=== PATIENT | female | born 1995 | race Caucasian/White ===

== ENCOUNTER 2018-08-06 15:00 | Emergency (ER) | payer OTHER ==
[~2018-08-06] VITALS: Ht 152.4 cm; Wt 52.8 kg
[2018-08-06 15:07] VITALS: Ht 152.4 cm; Wt 52.8 kg
--- NOTE | 2018-08-06 15:51 | ERD ---
ER Documentation Chief Complaint Chief Complaint epigastric pain, vomitting, tingling in fingers & toes after vomitting HPI 23-year-old female, previously healthy, presents the emergency department, complaining of epigastric abdominal pain that started approximately 2 hours ago, associated with nausea and 2 episodes of vomiting. The patient denies history of previous similar episodes, no fever, no chills, no diarrhea or constipation. No reports of suspicious food, no history of recent traveling, no history of abdominal surgeries. ROS All systems reviewed and are negative except as per history of present illness. Allergies Allergies: Coded Allergies: No Known Allergy (Unverified , 08/06/18) FmHx Family History: other (HTN, cancer) Physical Exam Vitals Vital Signs Date Temp Pulse Resp B/P (MAP) Pulse Ox O2 O2 Flow FiO2 Time Delivery Rate 08/06/18 99.1 103 18 127/91 98 15:07 (103) Physical Exam Const: No acute distress Head: Atraumatic Eyes: Normal Conjunctiva ENT: Normal External Ears, Nose and Mouth. Neck: Full range of motion. No meningismus. Resp: Clear to auscultation bilaterally Cardio: Regular rate and rhythm, no murmurs Abd: Soft, mild tenderness to deep palpation, no peritoneal signs, normal bowel sounds Skin: No petechiae or rashes Back: No midline or flank tenderness Ext: No cyanosis, or edema Neur: Awake and alert Psych: Normal Mood and Affect Result Diagram: 08/06/18 1625 08/06/18 1625 Results 24 hrs Laboratory Tests Test 08/06/18 16:25 White Blood Count 17.8 10^3/ul Red Blood Count 5.18 10^6/ul Hemoglobin 14.7 g/dl Hematocrit 45.3 % Mean Corpuscular Volume 87.5 fl Mean Corpuscular Hemoglobin 28.4 pg Mean Corpuscular Hemoglobin Concent 32.5 g/dl Red Cell Distribution Width 12.3 % Platelet Count 337 10^3/UL Mean Platelet Volume 10.1 fl Immature Granulocytes % 0.400 % Neutrophils % 85.6 % Lymphocytes % 8.4 % Monocytes % 5.1 % Eosinophils % 0.2 % Basophils % 0.3 % Nucleated Red Blood Cells % 0.0 /100WBC Immature Granulocytes # 0.080 10^3/ul Neutrophils # 15.3 10^3/ul Lymphocytes # 1.5 10^3/ul Monocytes # 0.9 10^3/ul Eosinophils # 0.0 10^3/ul Basophils # 0.1 10^3/ul Nucleated Red Blood Cells # 0.0 10^3/ul Urine Color YELLOW Urine Clarity CLOUDY Urine pH 7.0 Urine Specific [place] 1.030 Urine Ketones 2+ mg/dL Urine Nitrite NEGATIVE mg/dL Urine Bilirubin NEGATIVE mg/dL Urine Urobilinogen NEGATIVE mg/dL Urine Leukocyte Esterase NEGATIVE Adam/ul Urine Microscopic RBC 6 /HPF Urine Microscopic WBC 5 /HPF Urine Squamous Epithelial Cells MODERATE /HPF Urine Bacteria FEW /HPF Urine Mucus MANY /HPF Urine Hemoglobin NEGATIVE mg/dL Urine Glucose NEGATIVE mg/dL Urine Total Protein 1+ mg/dl Sodium Level 142 mmol/L Potassium Level 3.7 mmol/L Chloride Level 101 mmol/L Carbon Dioxide Level 27 mmol/L Anion Gap 14 Blood Urea Nitrogen 14 mg/dl Creatinine 0.59 mg/dl Est Glomerular Filtrat Rate mL/min > 60 mL/min Glucose Level 93 mg/dl Calcium Level 9.3 mg/dl Total Bilirubin 0.5 mg/dl Direct Bilirubin 0.00 mg/dl Indirect Bilirubin 0.5 mg/dl Aspartate Amino Transf (AST/SGOT) 23 IU/L Alanine Aminotransferase (ALT/SGPT) 19 IU/L Alkaline Phosphatase 79 IU/L Total Protein 8.8 g/dl Albumin 4.7 g/dl Globulin 4.10 g/dl Albumin/Globulin Ratio 1.14 Lipase 76 U/L Serum HCG, Qualitative NEGATIVE Current Medications Medications Dose Sig/Cyn Start Time Status Last (Trade) Ordered Route PRN Stop Time Admin Dose Reason Admin 40 ml ONCE STAT 08/06/18 DC 08/06/18 Miscellaneous PO 16:06 16:20 Medication 08/06/18 16:10 (Gi Cocktail (2)) 650 mg ONCE ONCE 08/06/18 DC 08/06/18 Acetaminophen PO 16:30 16:20 (Tylenol 08/06/18 16:31 Tab) Morphine 10 mg ONCE ONCE 08/06/18 DC 08/06/18 Sulfate PO 17:00 16:57 (morphine) 08/06/18 17:01 Ondansetron 8 mg ONCE STAT 08/06/18 DC 08/06/18 HCl (Zofran ODT 16:53 16:57 Odt) 08/06/18 16:54 Ondansetron 4 mg ONCE STAT 08/06/18 DC 08/06/18 HCl (Zofran IM 17:03 17:09 Inj) 08/06/18 17:04 Sodium 1,000 ml @ Q1H STAT 08/06/18 DC 08/06/18 Chloride 1,000 mls/hr IV 17:12 17:23 08/06/18 18:11 Ondansetron 4 mg ONCE STAT 08/06/18 DC 08/06/18 HCl (Zofran IV 17:12 17:23 Inj) 08/06/18 17:14 Ketorolac 15 mg ONCE STAT 08/06/18 DC 08/06/18 Tromethamine IV 17:12 17:23 (Toradol) 08/06/18 17:14 Procedures/MDM Vital signs stable. Differential diagnosis include but not limited to: Gastritis, gastroenteritis, cholelithiasis, cholecystitis, kidney stones, irritable bowel syndrome, inflammatory bowel syndrome, malabsorption syndrome, food intolerance, medication side effect, pancreatitis, diverticulitis, bowel ob struction. Physical examination and clinical presentation consistent most likely with acute gastritis. During the ED course the patient remained stable, no new complaints. Results and clinical impression discussed with the patient who agrees with management. The patient is stable to be treated outpatient and will be discharged home with a Rx for ranitidine and Tylenol, some side effects of pres cribed medications (headache, rash, nausea, vomiting, diarrhea, drowsiness, habituation, bleeding, hypertension, interactions with other medications) were reviewed. Follow up with the primary care provider in the next 48h is recommended. If symptoms persist, worsen or new symptoms develop, then patient should return to the ED immediately. Instructions explained and given directly by me to the patient with acknowledgment and demonstrated understanding. Disclaimer: Inadvertent spelling and grammatical errors are likely due to EHR/dictation software use and do not reflect on the overall quality of patient care. Also, please note that the electronic time recorded on this note does not necessarily reflect the actual time of the patient encounter. Departure Diagnosis: Primary Impression: Abdominal pain Additional Impression: GERD (gastroesophageal reflux disease) Condition: Stable Additional Instructions: Thank you very much for allowing us to participate in your care. Your health and safety is our top priority at [facility]. The evaluation in the emergency department has been done to rule out an acute emergency. Chronic, [id number] conditions may have not been evaluated; therefore, you need to follow up with a primary care provider in the next 48h. If symptoms persist, worsen or new symptoms develop, then patient sh ould return to the ED immediately. Call your primary care doctor TOMORROW for an appointment during the next 2-4 days and bring all the information provided. Have prescriptions filled and follow precisely the directions on the label. If the symptoms get worse and your provider is unavailable, return to the Emergency Department immediately. ORTIZ ARCINIEGA MD Aug 06, 2018 15:50
[2018-08-06] MEDS ORDERED: LIDOCAINE/MYLANTA 40 ML BTL PO STA (16:06)
[2018-08-06] MEDS ORDERED: ACETAMINOPHEN 325 MG TAB PO ONE (16:30)
[2018-08-06] MEDS ORDERED: ONDANSETRON (ODT) 4 MG TAB ODT STA (16:53)
[2018-08-06] MEDS ORDERED: morphine LIQ (10 MG/5 ML) CUP PO ONE (17:00)
[2018-08-06] MEDS ORDERED: ONDANSETRON 4 MG INJ IM STA (17:03)
[2018-08-06] MEDS ORDERED: KETOROLAC 15 MG INJ IV STA (17:12)
[2018-08-06] MEDS ORDERED: ONDANSETRON 4 MG INJ IV STA (17:12)
[2018-08-06] MEDS ORDERED: SOD CHLORIDE 0.9% 1,000 ML IV STA (17:12)
[2018-08-06] MEDS ORDERED: RANI150T35 PO (18:44)
[2018-08-06] MEDS ORDERED: ONDA4TAB8 PO (18:44)
[2018-08-06] MEDS ORDERED: ACET325T33 PO (18:44)
[2018-08-06 19:04] VITALS: BP 112/69; PULSE 92; RESP 17
== END 2018-08-06 19:04 | disposition home or self-care (01) ==
LOC: FTE 15:00
DX: K21.9 Gastro-esophageal reflux disease without esophagitis (principal)
CPT/HCPCS: 36415; 74176; 76705; 80053; 81001; 83690; 84703; 85025; 96372; 96374; 96375; J1885; J2405; J7030; Z7502; Z7610